=== PATIENT | female | born 1950 | race Two or more races ===

== ENCOUNTER 2018-01-10 09:01 | Outpatient (CLI) | payer OTHER ==
[~2018-01-10] VITALS: Ht 157.5 cm; Wt 88.9 kg
== END 2018-01-10 09:15 | disposition home or self-care (01) ==
LOC: OFIC 805 09:01
DX: E04.2 Nontoxic multinodular goiter (principal); R13.19 Other dysphagia; R49.0 Dysphonia

== ENCOUNTER 2018-02-15 08:08 | Outpatient (CLI) | payer OTHER ==
[~2018-02-15] VITALS: Ht 152.4 cm; Wt 8.6 kg
== END 2018-02-15 08:15 | disposition home or self-care (01) ==
LOC: OFIC 805 08:08
DX: R13.19 Other dysphagia (principal); R49.0 Dysphonia; F45.8 Other somatoform disorders; E04.2 Nontoxic multinodular goiter

== ENCOUNTER 2018-05-12 13:34 | Outpatient (CLI) | payer OTHER ==
[~2018-05-12] VITALS: Ht 152.4 cm; Wt 88.9 kg
== END 2018-05-12 13:45 | disposition home or self-care (01) ==
LOC: OFIC 805 13:34
DX: R13.19 Other dysphagia (principal); R49.0 Dysphonia; E04.2 Nontoxic multinodular goiter; F45.8 Other somatoform disorders

== ENCOUNTER 2022-10-27 12:34 | Emergency (ER) | payer OTHER ==
[~2022-10-27] VITALS: Ht 157.5 cm; Wt 79.4 kg
[2022-10-27] MEDS ORDERED: SINGULAIR10 MG PO (12:57)
[2022-10-27] MEDS ORDERED: JANUMET XR 1001 EACH PO (12:57)
[2022-10-27] MEDS ORDERED: HYZAAR 100-251 EACH PO (12:57)
[2022-10-27] MEDS ORDERED: GLIMEPIRIDE4 MG PO (12:57)
[2022-10-27] MEDS ORDERED: TRICOR145 MG PO (12:58)
[2022-10-27] MEDS ORDERED: LIPITOR20 MG PO (12:58)
== END 2022-10-27 19:08 | disposition home or self-care (01) ==
LOC: ER 12:34
DX: J44.1 Chronic obstructive pulmonary disease with (acute) exacerbation (principal); J45.901 Unspecified asthma with (acute) exacerbation; I10 Essential (primary) hypertension; E11.9 Type 2 diabetes mellitus without complications; Z79.84 Long term (current) use of oral hypoglycemic drugs; Z20.822 Contact with and (suspected) exposure to COVID-19; Z77.22 Contact with and (suspected) exposure to environmental tobacco smoke (acute) (chronic)

== ENCOUNTER 2025-02-15 07:45 | Outpatient (CLI) | payer OTHER ==
[~2025-02-15 07:45] MED LIST: GLIMEPIRIDE4 MG PO; HYZAAR 100-251 EACH PO; JANUMET XR 1001 EACH PO; LIPITOR20 MG PO; SINGULAIR10 MG PO; TRICOR145 MG PO
== END 2025-02-15 07:48 | disposition home or self-care (01) ==
LOC: TOM 07:45
PROVIDERS: ATTEND Internal Medicine Gastroenterology
DX: K57.90 Diverticulosis of intestine, part unspecified, without perforation or abscess without bleeding (principal); Z12.11 Encounter for screening for malignant neoplasm of colon

== ENCOUNTER 2025-04-16 09:54 | Outpatient (CLI) | payer OTHER | END 2025-04-16 09:56 | disposition home or self-care (01) | LOC: MRI 09:54 | PROVIDERS: ATTEND Psychiatry & Neurology Clinical Neurophysiology | DX: G31.84 Mild cognitive impairment of uncertain or unknown etiology (principal) | CPT/HCPCS: 70551 ==